=== PATIENT | male | born 1965 | race Caucasian/White ===

== ENCOUNTER 2022-08-18 12:09 | Emergency (ER) | payer OTHER ==
[2022-08-18 12:35] LABS: BASOPHILS # (AUTO) 0.1 10^3/uL (0.0-0.1); BASOPHILS % (AUTO) 0.8 %; EOSINOPHILS # (AUTO) 0.3 10^3/uL (0.0-0.7); EOSINOPHILS % (AUTO) 4.6 %; HCT - HEMATOCRIT 39.9 % (42.0-52.0); HGB - HEMOGLOBIN 13.3 g/dL (14.0-18.0); LYMPHOCYTES # (AUTO) 1.2 10^3/uL (1.5-3.5); LYMPHOCYTES % (AUTO) 16.2 %; MEAN CORPUSCULAR HGB CONC 33.3 g/dL (32.0-36.0); MEAN CORPUSCULAR VOLUME 86.9 fL (80.0-94.0); MEAN PLATELET VOLUME 9.4 fL (7.4-11.4); MONOCYTES # (AUTO) 0.8 10^3/uL (0.0-1.0); MONOCYTES % (AUTO) 10.9 %; NEUTROPHILS # (AUTO) 4.8 10^3/uL (1.5-6.6); NEUTROPHILS % (AUTO) 67.4 %; PLT - PLATELET COUNT 225 10^3/uL (130-450); RED BLOOD COUNT 4.59 10^6/uL (4.70-6.10); RED CELL DISTRIBUTION WIDTH 13.4 % (12.0-15.0); WHITE BLOOD COUNT 7.2 x10^3/uL (4.8-10.8)
[2022-08-18] MEDS ORDERED: KETOROLAC 30 MG/ML VIAL IVP STA (12:37)
[2022-08-18] MEDS ORDERED: HYDROmorphone 1 MG/ML CARPUJECT IVP STA (12:37)
[2022-08-18 12:48] LABS: ALBUMIN 4.2 g/dL (3.2-5.5); ALBUMIN/GLOBULIN RATIO 1.6 (1.0-2.2); BILIRUBIN,TOTAL 0.8 mg/dL (0.2-1.0); CALCIUM 9.2 mg/dL (8.5-10.3); CREATININE 1.1 mg/dL (0.6-1.2); TOTAL PROTEIN 6.8 g/dL (6.7-8.2)
--- NOTE | 2022-08-18 13:20 | ED Physician Documentation ---
PD HPI ABD PAIN - Stated complaint Stated Complaint: Abdominal pain - Chief complaint Chief Complaint: Abd Pain - Additional information Additional information: The patient comes emergency department chief complaint of right-sided flank and lower abdominal pain that came on suddenly a little over an hour ago. He denies nausea but states he was sweating because it hurts so much. No fevers or chills though. The patient states that he has had a kidney stone before and this feels similar. He was feeling completely well before onset of the pain. No dysuria or hematuria. No change in his bowel movements. No respiratory symptoms. Review of Systems Ten Systems: 10 systems reviewed and negative Constitutional: reports: Reviewed and negative Eyes: reports: Reviewed and negative Ears: reports: Reviewed and negative Nose: reports: Reviewed and negative Throat: reports: Reviewed and negative Cardiac: reports: Reviewed and negative Respiratory: reports: Reviewed and negative GI: reports: Abdominal Pain : reports: Reviewed and negative Skin: reports: Reviewed and negative Musculoskeletal: reports: Reviewed and negative Neurologic: reports: Reviewed and negative Psychiatric: reports: Reviewed and negative Endocrine: reports: Reviewed and negative Immunocompromised: reports: Reviewed and negative PD PAST MEDICAL HISTORY - Present Medications Home Medications: Ambulatory Orders Medication Instructions Recorded Confirmed HYDROcod/ACETAM 5/325 [Milburn 5/325] 1 - 2 tablet PO Q6H PRN #14 tablet 08/18/22 Ondansetron Odt [Zofran] 4 mg TL Q6H PRN #10 tablet 08/18/22 Tamsulosin [Flomax] 0.4 mg PO DAILY #7 cap 08/18/22 - Allergies Allergies/Adverse Reactions: Allergies Allergy/AdvReac Type Severity Reaction Status Date / Time No Known Drug Allergies Allergy Verified 08/18/22 12:21 PD ED PE NORMAL - Vitals Vital signs reviewed: Yes - General General: Alert and oriented X 3, No acute distress, Well developed/nourished - HEENT HEENT: Atraumatic, PERRL, EOMI, Moist mucous membranes - Neck Neck: Supple, no meningeal sign - Cardiac Cardiac: RRR, No murmur, Strong equal pulses - Respiratory Respiratory: No respiratory distress, Clear bilaterally - Abdomen Abdomen: Soft, Non tender, Non distended - Back Back: No CVA TTP - Derm Derm: Normal color, Warm and dry, No rash - Extremities Extremities: No deformity - Neuro Neuro: Alert and oriented X 3 - Psych Psych: Normal mood, Normal affect Results - Vitals Vitals: Oxygen O2 Source Room air - Labs Labs: Laboratory Tests 08/18/22 08/18/22 08/18/22 12:30 12:30 14:40 WBC 7.2 RBC 4.59 L Hgb 13.3 L Hct 39.9 L MCV 86.9 MCH 29.0 MCHC 33.3 RDW 13.4 Plt Count 225 MPV 9.4 Neut # (Auto) 4.8 Lymph # (Auto) 1.2 L Ransom # (Auto) 0.8 Eos # (Auto) 0.3 Baso # (Auto) 0.1 Absolute Nucleated RBC 0.00 Nucleated RBC % 0.0 Sodium 138 Potassium 4.0 Chloride 104 Carbon Dioxide 24 Anion Gap 10.0 BUN 16 Creatinine 1.1 Estimated GFR (MDRD) 69 L Glucose 174 H Calcium 9.2 Total Bilirubin 0.8 AST 27 ALT 20 Alkaline Phosphatase 63 Total Protein 6.8 Albumin 4.2 Globulin 2.6 Albumin/Globulin Ratio 1.6 Lipase 40 Urine Color YELLOW Urine Clarity CLEAR Urine pH 6.0 Ur Specific [place] >=1.030 H Urine Protein NEGATIVE Urine Glucose (UA) NEGATIVE Urine Ketones 15 H Urine Occult Blood NEGATIVE Urine Nitrite NEGATIVE Urine Bilirubin NEGATIVE Urine Urobilinogen 0.2 (NORMAL) Ur Leukocyte Esterase NEGATIVE Ur Microscopic Review NOT INDICATED Urine Culture Comments NOT INDICATED - Rads (name of study) CT abdomen pelvis no contrast Radiology: Final report received, EMP read indepedently, See rad report (3 mm right distal ureteral stone) PD MEDICAL DECISION MAKING - ED course Complexity details: reviewed results, re-evaluated patient, considered differential, d/w patient ED course: The patient was treated symptomatically in the emergency department. I suspecte d a stone, based on the sudden onset of his discomfort and the location. He was found to be feeling better after receiving Dilaudid and Toradol. CT showed a small right distal ureteral stone, and I have discussed this with the patient. I have given him prescriptions for Flomax, as well as analgesia and antiemetics. Expect the stone will pass quickly but we have discussed the need for urology follow-up if he is having symptoms beyond 1 week from now. We have also discussed the usual indications for return Departure - Departure Disposition: 01 Home, Self Care Clinical Impression: Kidney stone on right side Condition: Stable Instructions: ED Stone Renal W Colic Prescriptions: Tamsulosin [Flomax] 0.4 mg PO DAILY #7 cap HYDROcod/ACETAM 5/325 [Milburn 5/325] 1 - 2 tablet PO Q6H PRN #14 tablet PRN Reason: Pain Ondansetron Odt [Zofran] 4 mg TL Q6H PRN #10 tablet PRN Reason: Nausea / Vomiting Comments: Your CT scan shows a small, 3 mm stone that is nearly ready to pass into your bladder on the right. It is important that you drink plenty of fluids to help this pass. Prescriptions for Your medications have been electronically transmitted to [facility] pharmacy in [place]. Your stone would be expected to pass on its own within the next hours to days. If you continue to have pain for more than the next week, please follow-up with your primary doctor to set up a referral to urology. Discharge Date/Time: 08/18/22 15:57
[2022-08-18 14:39] VITALS: BP 130/80
[2022-08-18 14:50] LABS: BILIRUBIN,URINE NEGATIVE (NEGATIVE); GLUCOSE, URINE (UA) NEGATIVE (NEGATIVE); KETONES,URINE (UA) 15 mg/dL (NEGATIVE); LEUKOCYTE ESTERASE, URINE NEGATIVE (NEGATIVE); NITRITE,URINE NEGATIVE (NEGATIVE); OCCULT BLOOD,URINE NEGATIVE (NEGATIVE); PROTEIN,URINE NEGATIVE (NEGATIVE); UROBILINOGEN,URINE 0.2 (NORMAL) E.U./dL (NORMAL)
[2022-08-18 14:51] LABS: CLARITY,URINE CLEAR (CLEAR)
--- NOTE | 2022-08-18 15:05 | CT Report ---
PROCEDURE: CT abdomen pelvis without contrast INDICATIONS: R flank pain TECHNIQUE: Noncontrast 5 mm thick sections acquired from the diaphragms to the symphysis. 5 mm coronal and sagi ttal reformats were then performed. For radiation dose reduction, the following was used: automated exposure control, adjustment of mA and/or kV according to patient size. COMPARISON: None. FINDINGS: Image quality: Excellent. ABDOMEN: Lung bases: Lung bases are clear. Heart size is normal. Solid organs: 3 mm calculus in the distal right ureter is 1 cm to the ureterovesical junction result s in moderate right hydronephrosis and hydroureter. There is perinephric renal stranding. Nonobstruct isidro left renal calculi measure up to 4 mm. No left hydronephrosis. Left hepatic cyst measures 3.3 cm. Several splenic splenules noted in the left upper quadrant. Gallbladder unremarkable Pancreas is n ormal in contours. No adrenal nodules. 1 cm hyperdense right renal cyst noted Peritoneum and bowel: Unenhanced bowel loops demonstrate normal wall thickness and caliber. No free fluid or air. Nodes and vessels: No retroperitoneal or mesenteric adenopathy by size criteria. Aorta and inferior vena cava are normal in caliber. Miscellaneous: Periumbilical ventral hernia contains fat without bowel involvement PELVIS: Genitourinary: Bladder wall thickness is normal. Miscellaneous: No inguinal hernias or adenopathy. Bones: No suspicious bony lesions. No vertebral body compression fractures. 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 Distal right ureteral 3 mm calculus results in moderate right hydronephrosis and hydroureter. 2. Nonobstructive left renal calculi measures up to 4 mm 3. Multiple quadrant splenic splenules. Umbilical ventral hernia contains fat without bowel involvem ent Reviewed by: Martin Barros MD on 08/18/2022 2:04 PM AKDT Approved by: Martin Barros MD on 08/18/2022 2:04 PM AKDT Station ID: [id number]
[2022-08-18] MEDS ORDERED: HYDROmorphone 0.5 MG/0.5 ML SYRINGE IVP STA (15:47)
== END 2022-08-18 15:57 | disposition home or self-care (01) ==
LOC: ED 12:09
DX: N13.2 Hydronephrosis with renal and ureteral calculous obstruction (principal); Z87.442 Personal history of urinary calculi; K43.9 Ventral hernia without obstruction or gangrene
CPT/HCPCS: 36415; 74176; 80053; 81003; 83690; 85025; 96374; 96375; 96376; 99284; J1170; 81001; 87086